=== PATIENT | male | born 2000 | race Caucasian/White ===

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

== ENCOUNTER 2019-03-23 08:09 | Emergency (ER) | payer OTHER, SELFPAY ==
[2019-03-23 08:10] VITALS: BP 127/76; PULSE 80; RESP 18; TEMP 36.1; O2SAT 99; BMI 22.4
--- NOTE | 2019-03-23 08:45 | ED.DCSUM_ITS ---
- ER Visit Summary Date of Service: 03/23/19 Chief Complaint: Right eye pain History of Present Illness: The patient is a 18 M who goes to [employer]. He does wear contacts. He reports that he changes these every the 2 to 3 days. He changed them yesterday. Reports that overnight he has had the development of a sharp, throbbing pain in his right eye. States the pain is 10 out of 10 at worst and 2 out of 10 currently. Is worsened by light. It was relieved by removing his contact. He reports that he has had tearing and blurred vision from that eye as well. He denies any injury to the eye. 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 Is not well. He reports that his left eye is not having any symptoms. He does not have glasses. Physical Examination: Vitals: Stable. Afebrile. Visual acuity: 20/70 on right, 20/20 on the left, 20/15 bilaterally. General: Well-nourished and well-developed. Head: Normocephalic atraumatic. Right eye: Upper eyelid was everted for exam. There is no foreign body present. He has diffuse conjunctival injection with ciliary flush. There is no foreign body. He does have a small abrasion at approximately 5:00 on the right. There is no consensual photophobia. Extraocular motions are intact. Pupils are equal round and reactive. Neck: Supple, no lymphadenopathy. No JVD. Nontender. Cardiovascular: Regular rate and rhythm. No murmurs. Respiratory: No respiratory distress. Clear to auscultation bilaterally. Abdominal: Soft, nontender, nondistended, normal bowel sounds. No guarding, rebound, or peritoneal signs. Back: Nontender. Extremities: Nontender, no edema. Skin: Normal color, no rash. Neurologic: Alert and oriented ?3. Cranial nerves II through XII are intact. Normal strength and sensation. Psych: Normal affect. Emergency Department Course and Treatment: Patient had complete resolution of his pain with placement of tetracaine. He had Cipro drops placed. Treatment Plan: Patient will be discharged on Cipro drops. Instructed to follow-up with Dr. Yadav in 2 days for repeat examination. He is instructed not to wear his contacts for at least 1 week and until cleared by ophthalmology. Return to the emergency department for any worsening symptoms. Disposition: To home in improved and stable condition. Impression: 1. Corneal abrasion right eye. This note was generated with [employer] dictation software. It may contain incorrect words, spelling, and punctuation that were not noted in review of the chart prior to signing ED Disposition - Plan for ED Patient: Instructions: ED Corneal Abrasion Referrals: Sam Yadav MD [STAFF PHYSICIAN] - 2 Days Additional Instructions: Use Cipro drops 1-2 DROPS TO AFFECTED EYE(S) EVERY 2 HOURS WHILE AWAKE FOR 2 DAYS, THEN EVERY 4 HOURS FOR 5 MORE DAYS.
[2019-03-23] MEDS: Ciprofloxacin 0.3% 2.5ml Bottle 2 DRP RIGHT EYE (09:12)
[2019-03-23] MEDS: Ciprofloxacin 0.3% 2.5ml Bottle RIGHT EYE (09:12)
[2019-03-23] MEDS: Fluorescein 1 MG STRIP 1 STRIP OPHTHALMIC (09:13)
[2019-03-23] MEDS: Tetracaine 0.5% Ophthalmic Bottle OPHTHALMIC (09:13)
--- NOTE | 2019-03-23 09:16 | ED.RN ---
DISCHARGE INSTRUCTIONS GIVEN TO AND REVIEWED WITH PATIENT, PATIENT DENIES QUESTIONS OR CONCERNS AND VOICES UNDERSTANDING OF DISCHARGE INSTRUCTIONS. PT AMBULATES OUT OF ROOM WITHOUT DIFFICULTY.
== END 2019-03-23 09:16 | disposition home or self-care (01) ==
PROVIDERS: Emergency Provider Emergency Medicine; Family Provider Nurse Practitioner Primary Care; PCP Nurse Practitioner Primary Care
DX: S05.01XA Injury of conjunctiva and corneal abrasion without foreign body, right eye, initial encounter (principal); X58.XXXA Exposure to other specified factors, initial encounter; Y93.89 Activity, other specified; Z72.0 Tobacco use
CPT/HCPCS: 99283

== ENCOUNTER → 2019-10-17 10:32 | Outpatient (CLI) | payer OTHER, SELFPAY ==
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
== END ==
PROVIDERS: PCP Nurse Practitioner Primary Care; Referring Provider Orthopaedic Surgery; Visit Provider Orthopaedic Surgery
DX: M79.602 Pain in left arm (principal)
CPT/HCPCS: 73090

== ENCOUNTER 2023-05-07 18:48 | Emergency (ER) | payer BC, SELFPAY ==
[2023-05-07 18:51] VITALS: BP 127/79; PULSE 81; RESP 18; TEMP 36.4; O2SAT 99; BMI 22.8
--- NOTE | 2023-05-07 19:58 | EDS_ITS ---
HPI History of Present Illness Chief Complaint: Laceration Detail of Chief Complaint: Laceration to right ring finger Informant: patient Narrative Narrative: Patient presents with laceration to his right ring finger that occurred this afternoon. Patient states that he was working on his gun and got the skin of the pulp of the digit pinched between 2 metallic pieces causing a laceration. Patient unsure of his last tetanus shot. PFSH PFSH Home Medications ascorbic acid (vitamin C) 1,000 mg tablet 1,000 mg PO DAILY 11/06/17 [History Last Taken Unknown] multivitamin 1 ea PO DAILY 11/06/17 [History Last Taken Unknown] meloxicam 15 mg tablet (Mobic) 15 mg PO DAILY #30 tabs 10/17/19 [Rx Last Taken Unknown] Allergy/AdvReac Type Severity Reaction Status Date / Time No Known Allergies Allergy Verified 05/07/23 18:51 Social History (Updated 10/17/19 @ 11:[address] Phil Hernandez, DO) Smoking Status: Current every day smoker tobacco type: cigarettes ROS ROS ED Review of Systems ROS Unobtainable: other Constitutional Constitutional ED: Reports lethargy; Denies chills, fever(s), sweats or weight loss Eyes Eyes: Denies blurry vision, change in vision or diplopia ENT ENT ED: Denies rhinorrhea or sore throat Cardiovascular Cardiovascular: Denies chest pain, orthopnea or racing heartbeat Respiratory/Chest Respiratory/Chest: Denies cough, dyspnea, dyspnea on exertion, orthopnea or sputum Gastrointestinal Gastrointestinal: Denies abdominal pain, diarrhea, nausea or vomiting Genitourinary Genitourinary ED: Denies dysuria, hematuria or urinary frequency Musculoskeletal Musculoskeletal: Denies arthralgias, back pain, myalgias or neck pain Integumentary Reports other Details: Laceration to right ring finger ; Denies abscess, Abrasions or rash Neurologic Neurologic: Denies headache(s) or weakness Psychiatric Psychiatric: Denies anxiety, depression or suicidal thoughts Endocrine Endocrinology: Denies polydipsia, polyphagia or polyuria Hematologic/Lymphatic Hematologic/Lymphatic: Denies easy bleeding, easy bruising or lymphadenopathy Allergic/Immunologic Allergic/Immunologic ED: Denies mouth swelling, tongue swelling or urticaria EXAM Physical Exam Const Vital Signs: 05/07/23 18:51 Temperature 97.6 F L Temperature Source Temporal Pulse Rate 81 Respiratory Rate 18 Blood Pressure 127/79 H Blood Pressure Mean 95 Pulse Ox 99 Oxygen Delivery Method Room Air Positive well nourished and well developed General Appearance ED: well developed and NAD HEENT Reports TM's clear and moist mucous membranes normocephalic and atraumatic; Negative for trauma or tenderness Tympanic Membrane ED: Yes TM's clear Eyes PERRL and EOMs intact bilaterally General Eye ED: Negative for pale conjunctiva or scleral icterus Neck no lymphadenopathy, supple and no JVD General: Negative for tenderness Chest Wall inspection of chest normal and palpation of chest normal Chest: Negative for tenderness Resp normal respiratory effort and clear to auscultation bilaterally Effort and Inspection: Negative for respiratory distress or pain with movement Auscultation: Negative for rhonchi, wheezes or diminished lung sounds Cardio regular rate, regular rhythm, S1 normal heart sound, S2 normal heart sound and no murmurs Peripheral Pulses: pulses 2+ throughout GI normal to inspection, nondistended, normoactive bowel sounds, soft to palpation, non-tender, non-distended and no masses Back/Spine no CVA tenderness and no thoracic nor lumbar tenderness Extremity Extremity Narrative: Right ring finger reveals a 1 cm flap laceration over the volar pulp of the digit with no significant bleeding. Has no bony tenderness on exam. He has normal range of motion flexion extension of the DIP and PIP joint. He is neurovascular intact. General Extremety ED: Negative for edema General Extremity: Negative for edema Neuro oriented x3, CN's II-XII intact bilaterally, no sensory deficits noted and gait normal Sensorium / Orientation: awake, alert, oriented to person, oriented to place and oriented to time Motor Exam: strength 5/5 throughout and strength abnormal Psych mental status grossly normal Skin no rashes or lesions noted and no wounds MDM MDM MDM Narrative Medical decision making narrative: Discussed treatment options with patient including skin glue and Steri-Strips or suturing. Patient states he works with his hands frequently and is concerned that it will open up and bleed and not heal as quickly than would like to have sutures placed. Please see procedure note. Patient did not want local anesthetic. Area was cleansed with Shur-Clens and irrigated with saline. 2 single erupted sutures placed and he tolerated procedure well. Clean dressing applied. Patient advised to follow-up with primary care physician in 10 days for suture removal. He is advised to return if increasing pain, redness, swelling, purulent drainage, or condition should worsen anyway Procedures Lacerations Finger laceration: Length: 0.39 in Depth: Sub Q Shape: Flap Prep: Sterile Conditions Laceration repair: Irrigated and Skin sutures Irrigated (ml): 50 Number of Sutures/Soham: 2 Suture Information: Ethilon, Simple and 5-0 Discharge Plan Triage Chief Complaint: Laceration ED Provider: Pura Blanco Dx/Rx/DC Orders Clinical Impression: Finger laceration Instructions: ED Laceration, Hand: All Closures Prescriptions: No Action meloxicam [Mobic] 15 mg tablet 15 mg PO DAILY Qty: 30 0RF Rx Instructions: Do not take with other NSAIDs multivitamin 1 EACH tablet 1 ea PO DAILY ascorbic acid (vitamin C) 1,000 MG tablet 1,000 mg PO DAILY Primary Care Provider: Ziyad Brady NP Referrals: Ziyad Brady NP, [employer] [Primary Care Provider] - 10 Day for suture removal Disposition Disposition: Home, Self Care Discharge Date/Time: 05/07/23 20:23
[2023-05-07] MEDS: Diphth,Pertuss(Acell),Tet Vac 0.5 ML Vial IM (20:15)
[2023-05-07] MEDS: Lidocaine 1% (20 ml mdv) 20 ML Vial INFILT (20:15)
== END 2023-05-07 20:23 | disposition home or self-care (01) ==
LOC: ED 20:16
PROVIDERS: Emergency Provider Emergency Medicine; PCP Nurse Practitioner Primary Care; Visit Provider Emergency Medicine
DX: S61.214A Laceration without foreign body of right ring finger without damage to nail, initial encounter (principal); F17.210 Nicotine dependence, cigarettes, uncomplicated; Z23 Encounter for immunization; X58.XXXA Exposure to other specified factors, initial encounter
CPT/HCPCS: 12001; 90471; 90715; 99283